=== PATIENT | male | born 1975 | race Caucasian/White ===

== ENCOUNTER 2025-02-22 21:35 | Emergency (ER) | payer SELFPAY ==
[~2025-02-22] VITALS: Ht 154.9 cm; Wt 70.5 kg
[2025-02-22 21:56] VITALS: BP 140/49; PULSE 65; RESP 14; TEMP 37.1; O2SAT 99
[2025-02-22] MEDS: KETOROLAC 30MG/ML VIAL IM ONE (23:30)
[2025-02-23] MEDS ORDERED: KETO10TA2 MT (01:09)
== END 2025-02-23 02:32 | disposition home or self-care (01) ==
LOC: ER 21:35
DX: M79.641 Pain in right hand (principal)
CPT/HCPCS: 99283; 73130; 96372; J1885